=== PATIENT | female | born 1955 | race African-American/Black ===

== ENCOUNTER 2018-01-26 12:37 | Emergency (ER) | payer OTHER ==
[~2018-01-26] VITALS: Ht 167.6 cm; Wt 83.6 kg
[~2018-01-26 12:37] MED LIST: ASPIRIN E.C. 8181 MG PO; EYE DROP ORIGIN15 ML OP; HUMALOG100 U/ML SQ; LANTUS100 U/ML SC; MAXZIDE-25MG TA1 TAB PO; NORVASC 10MG10 MG PO; PREMARIN .3MG0.3 MG PO; PRINIVIL10 MG PO; ZOCOR 10MG10 MG PO
[2018-01-26 12:44] VITALS: TEMP 98.7
[2018-01-26] MEDS ORDERED: JANUVIA25 MG PO (13:01)
[2018-01-26] MEDS ORDERED: BYDUREON P2 MG/0.65 (13:01)
[2018-01-26 13:17] LABS: COLLECTION METHOD CLEAN CATCH
[2018-01-26 13:24] LABS: MUCOUS Present /lpf; PH 6 (5-8); SQUAMOUS EPITHELIAL 0-2 /hpf; URINE APPEARANCE Clear; URINE BACTERIA Rare /hpf; URINE BILIRUBIN Negative (NEGATIVE); URINE BLOOD Negative (NEGATIVE); URINE COLOR Yellow; URINE GLUCOSE Negative (NEGATIVE); URINE KETONE Negative (NEGATIVE); URINE LEUKOCYTE ESTERASE Negative (NEGATIVE); URINE NITRATE Negative (NEGATIVE); URINE PROTEIN(semi-quant) Negative (NEGATIVE); URINE RBC 0-2 /hpf; URINE UROBILINOGEN Negative (NEGATIVE)
[2018-01-26 13:32] LABS: BASO # 0.1 (0.0-0.2); EOS # 0.4 (0.0-0.7); EOS % 5.6 % (0-4.0); GRAN # 2.9 (1.4-6.5); GRAN % 46.8 % (42.2-75.2); HEMATOCRIT 37.1 % (37.0-47.0); HEMOGLOBIN 12.4 g/dl (12.5-16.0); LYMPH # 2.5 (1.2-3.4); LYMPH % 40.1 % (20.0-51.0); MEAN CELL VOLUME 100 fl (80.0-100.0); MEAN CORPUSCULAR HEMOGLOBIN 33 pg (27.0-31.0); MEAN CORPUSCULAR HGB CONC 33 g/dl (33.0-37.0); MEAN PLATELET VOLUME 9.4 fl (7.4-10.4); MONO # 0.4 (0.1-0.6); MONO % 5.9 % (1.7-9.3); PLATELET COUNT 257 K/mm3 (130-400); RED BLOOD COUNT 3.72 M/mm3 (4.10-5.30); REDCELL DISTRIBUTION WIDTH-CV 13.2 % (11.5-14.5)
[2018-01-26 13:45] LABS: ALBUMIN 4.1 gm/dL (3.5-5.0); BILIRUBIN,TOTAL 0.5 mg/dL (0.0-1.0); C-REACTIVE PROTEIN 0.5 mg/dL (0.0-0.9); CALCIUM 9.4 mg/dL (8.4-10.2); CREATININE, serum 1.25 mg/dL (0.52-1.25); POTASSIUM 4.2 mmol/L (3.4-5.0); TOTAL PROTEIN 7.8 gm/dL (6.4-8.2)
[2018-01-26 14:37] VITALS: BP 130/63; PULSE 72
== END 2018-01-26 14:39 | disposition home or self-care (01) ==
LOC: COL.ER 12:37
PROVIDERS: Family Medicine
DX: R10.11 Right upper quadrant pain (principal); G89.29 Other chronic pain; E11.9 Type 2 diabetes mellitus without complications; I10 Essential (primary) hypertension; Z79.82 Long term (current) use of aspirin; Z79.4 Long term (current) use of insulin; Z90.49 Acquired absence of other specified parts of digestive tract
CPT/HCPCS: J1170; J2405; J7030

== ENCOUNTER → 2021-05-24 | Outpatient (CLI) | payer MEDICARE, OTHER ==
[~2021-05-24] MED LIST changes: +BYDUREON P2 MG/0.65; +JANUVIA25 MG PO
== END ==
LOC: DIA.ED 09:07
DX: E11.65 Type 2 diabetes mellitus with hyperglycemia (principal); Z79.4 Long term (current) use of insulin; I10 Essential (primary) hypertension
CPT/HCPCS: G0108

== ENCOUNTER 2022-02-28 07:52 | Outpatient (CLI) | payer MEDICARE, OTHER ==
[2022-02-28] VITALS (26 sets, daily range): BP systolic 104–143; BP diastolic 59–86; PULSE 64–82; TEMP 98.2
[~2022-02-28] VITALS: Ht 167.8 cm; Wt 83.9 kg
[~2022-02-28 07:52] MED LIST changes: +BYDUREON B2 MG/0.85 SQ; -BYDUREON P2 MG/0.65
[2022-02-28 09:07] LABS: BASO % 0.9 % (0.0-2.0); EOS # 0.2 K/mm3 (0.0-0.7); EOS % 4.5 % (0.0-4.0); GRAN # 2.2 K/mm3 (1.4-6.5); HEMATOCRIT 38.4 % (37.0-47.0); LYMPH # 1.7 K/mm3 (1.2-3.4); LYMPH % 38.8 % (20.0-51.0); MEAN CELL VOLUME 95 fl (80.0-100.0); MEAN CORPUSCULAR HEMOGLOBIN 32 pg (27-31); MEAN CORPUSCULAR HGB CONC 34 g/dl (33.0-37.0); MONO # 0.3 K/mm3 (0.1-0.6); MONO % 5.6 % (1.7-9.3); PLATELET COUNT 266 K/mm3 (130-400); RED BLOOD COUNT 4.04 M/mm3 (4.10-5.30); REDCELL DISTRIBUTION WIDTH-CV 14.5 % (11.5-14.5)
[2022-02-28 09:13] LABS: PROTHROMBIN TIME 11.7 SECONDS (9.7-12.8)
[2022-02-28] MEDS ORDERED: VITAMIN D31000 IU PO (09:20)
[2022-02-28] MEDS ORDERED: JARDIANCE10 PO (09:22)
[2022-02-28] MEDS ORDERED: NEURONTIN300 MG/CAP PO (09:22)
[2022-02-28] MEDS ORDERED: LASIX 40MG TABL40 MG PO (09:23)
[2022-02-28] MEDS ORDERED: XALATAN EYE DROPS OU (09:24)
[2022-02-28] MEDS ORDERED: MAG-OX 400400 MG/TAB PO (09:25)
[2022-02-28] MEDS ORDERED: FORT1000TA PO (09:27)
[2022-02-28] MEDS ORDERED: K-DUR20 MEQ PO (09:28)
[2022-02-28] MEDS ORDERED: PRAVACHOL 40MG40 MG PO (09:29)
[2022-02-28] MEDS ORDERED: CELEBREX 200MG200 MG PO (09:31)
--- NOTE | 2022-02-28 10:20 | NUR ---
Pt to ct per bed. Pt positioned in prone position on ct table. Monitors applied and O2 on at 2l/nc.
--- NOTE | 2022-02-28 10:40 | NUR ---
Specimens taken from left kidney and placed in sandra dish by Dr Rothman. Specimen carried out to pathologist, Dr Roldan. Total of seven specimens collected. Dr Roldan stated specimens were good.
--- NOTE | 2022-02-28 14:15 | NUR ---
PT requested to get up to bs commode for BM. i called Dr. Rothman, and pt was given permission to get up to bs. commode. Pt is back in bed now, fresh warm blankets given. denies pain or other needs at this time. call light in reach
--- NOTE | 2022-02-28 16:50 | NUR ---
Report from Owen Cristina.
--- NOTE | 2022-02-28 17:29 | NUR ---
Discharge instructions given to pt.INT removed by POLY Cristina.Pt verbalizes understanding.Pt escortedout via wheelchair by this nurse.
== END 2022-02-28 17:31 ==
LOC: COL.RAD 07:52
PROVIDERS: Radiology Diagnostic Radiology
DX: R80.9 Proteinuria, unspecified (principal)
CPT/HCPCS: J2250; J3010

== ENCOUNTER 2022-07-13 06:57 | Day surgery (SDC) | payer MEDICARE, OTHER ==
[~2022-07-13] VITALS: Ht 167.6 cm; Wt 77.9 kg
[~2022-07-13 06:57] MED LIST changes: +CELEBREX 200MG200 MG PO; +FORT1000TA PO; +JARDIANCE10 PO; +K-DUR20 MEQ PO; +LASIX 40MG TABL40 MG PO; +MAG-OX 400400 MG/TAB PO; +NEURONTIN300 MG/CAP PO; +PRAVACHOL 40MG40 MG PO; +VITAMIN D31000 IU PO; +XALATAN EYE DROPS OU
[2022-07-13] MEDS ORDERED: OZEMPIC1 MG/0.71 SQ (07:41)
[2022-07-13 08:50] VITALS: BP 113/55; PULSE 90; TEMP 97.5
--- NOTE | 2022-07-13 08:50 | NUR ---
0850 PATIENT RETURNS TO ROOM 6 VIA CART. PATIENT IS DROWSY BUT ALERTS TO VERBAL STIMULI. PATIENT AMBULATES TO RECLINER WITH THE ASSISTANCE OF 2 NURSES. RESPIRATIONS EVEN AND UNLABORED. VITAL SIGNS OBTAINED. PATIENT IN ROOM. PATIENT REQUESTED APPLE JUICE, NO DIFFICULTIES SWALLOWING. 0903 DISCHARGE INSTRUCTIONS REVIEWED WITH PATIENT AND PATIENT . BOTH VERBALIZED UNDERSTANDING. 09 DOCTOR IN TO SPEAK WITH PATIENT. 0915 DISCONTINUED IV FROM RIGHT AC WITH NO DIFFICULTIES. 0928 PATIENT DISCHARGES FROM UNIT VIA WHEELCHAIR IN STABLE CONDITION.
[2022-07-13 09:05] VITALS: BP 126/76; PULSE 82
[2022-07-13 09:20] VITALS: BP 137/73; PULSE 80
[2022-07-13 12:58] VITALS: BP 115/72; PULSE 66; TEMP 97.5
== END 2022-07-13 09:28 | disposition home or self-care (01) ==
LOC: SDCO 06:57
DX: Z12.11 Encounter for screening for malignant neoplasm of colon (principal); D12.5 Benign neoplasm of sigmoid colon; Z80.0 Family history of malignant neoplasm of digestive organs
CPT/HCPCS: J2704

== ENCOUNTER → 2024-02-07 | Outpatient (CLI) | payer MEDICARE ==
[~2024-02-07] MED LIST changes: +OZEMPIC1 MG/0.71 SQ
== END ==
LOC: MC.RAD 08:42
DX: R59.9 Enlarged lymph nodes, unspecified (principal); R92.8 Other abnormal and inconclusive findings on diagnostic imaging of breast